=== PATIENT | female | born 1990 | race Asian ===

== ENCOUNTER 2017-05-28 16:33 | Emergency (ER) | payer SELFPAY ==
[~2017-05-28] VITALS: Ht 167.6 cm; Wt 59.1 kg
[2017-05-28] MEDS ORDERED: KEFLEX500 MG PO (17:23)
[2017-05-28 18:03] VITALS: BP 118/65
== END 2017-05-28 18:03 | disposition home or self-care (01) ==
LOC: EME 16:33
DX: S60.561A Insect bite (nonvenomous) of right hand, initial encounter (principal); L03.113 Cellulitis of right upper limb; W57.XXXA Bitten or stung by nonvenomous insect and other nonvenomous arthropods, initial encounter
CPT/HCPCS: 99281; 99283